=== PATIENT | male | born 1985 | race Caucasian/White ===

== ENCOUNTER → 2017-10-31 | Outpatient (CLI) | payer BC ==
--- NOTE | 2017-10-31 16:25 | MRI ---
EXAM DESCRIPTION: Lumbar Spine w/o Contrast CLINICAL HISTORY: 32 years, Male, LOW BACK PAIN , swelling COMPARISON: FINDINGS: Sagittal and axial sequences. Heterogeneous bone marrow signal which is not considered worrisome. Mild partial anterior compression L1 with Schmorl's node. Limbus vertebrae noted L3 anteriorly superiorly. Straightening compatible muscular spasm. Conus terminates at L2. Some nonspecific subcutaneous soft tissue swelling posterior to the upper lumbar vertebral bodies typically L2 Some mild desiccation L1-2 and L2-3 disc. Disc spaces otherwise unremarkable. At L3-4 disc and facets within normal limits. L4-5 mild desiccation and bulge slightly asymmetric to the left with facet degenerative change. No significant stenosis. L5-S1 disc within normal limits. Some minimal facet degenerative change.. IMPRESSION: Muscular spasm and minimal degenerative disc changes. No significant stenosis. Some mild chronic anterior compression deformities of L1 and L3 incidentally noted Electronically signed by: Jer Ponce MD 10/31/2017 4:24 PM [facility]
== END | disposition home or self-care (01) ==
LOC: MRI 09:58
PROVIDERS: ATTEND Family Medicine
DX: M51.27 Other intervertebral disc displacement, lumbosacral region (principal); M62.830 Muscle spasm of back